=== PATIENT | male | born 1960 | race Caucasian/White ===

== ENCOUNTER 2020-03-23 09:17 | Outpatient (REF) | payer OTHER, SELFPAY ==
[2020-03-26 08:47] LABS: PSA, Screening 0.8 ng/mL (0.0-4.5)
== END 2020-03-23 09:37 ==
LOC: NCHCN 09:17
PROVIDERS: PCP Internal Medicine; Visit Provider Internal Medicine
DX: Z12.5 Encounter for screening for malignant neoplasm of prostate (principal)
CPT/HCPCS: 84153